=== PATIENT | female | born 1990 | race Two or more races ===

== ENCOUNTER 2025-05-29 15:47 | Emergency (ER) | payer BC, MEDICAID, OTHER ==
[~2025-05-29] VITALS: Ht 180.3 cm; Wt 133.1 kg
[2025-05-29 15:49] VITALS: BP 128/76; PULSE 94; RESP 16; TEMP 98.4; O2SAT 98
--- NOTE | 2025-05-29 16:10 | ED.PDOC ---
Musculoskeletal HPI Comments 34 year old female with no past medical history, RT and dominant presents to the emergency department with a chief complaint of Rt leg pain onset 2 days. Patient states she worked a 18 hour shift, is constantly standing, walking, going up stairs. After 18 hour shift, she began experiencing RT leg pain, pain worsens with exertion. Patient is also experiencing LT shoulder pain for the past 6 months, pain has worsen. No other symptoms or modifying factors present at this time. Denies previous surgeries to the leg Denies redness or swelling around the leg Denies fever chills night sweats nausea vomiting Denies fall, injury Denies numbness/tingling Chief Complaint: Upper Extremity Time Seen by MD: 16:05 Reviewed Notes: Nurses Notes, Medications, Allergies Allergies: Coded Allergies: NO KNOWN ALLERGIES (Unverified , 05/29/25) Home Meds Active Scripts Naproxen (Naproxen) 500 Mg Tab, 500 MG PO BIDPRN PRN for 14 Days, #28 TAB 0 Refills Prov:BLANCADAVIDE NP 05/29/25 Information Source: Patient Mode of Arrival: Ambulatory Location: Right Extremity Location: Leg Timing: Days Prehospital treatment: None Severity: Moderate Able to Move Extremity: Yes Bear Weight: Limited Pain: Moderate Hand Dominance: Right Mechanism: Spontaneous Circumstances: Work Related Onset of Symptoms: Spontaneous Symptoms: Pain DVT Risk Factors: NONE Associated signs and symptoms: Leg pain Past Medical History PAST MEDICAL HISTORY: Denies Surgical History: Denies all surgeries CELL LEAD History: No Pertinent CELL LEAD History Family History Family History: Reviewed,noncontributory to illness, No family hx of Cancer, No family hx of DM, No family hx of Heart sonia, No family hx of HTN, No family hx ofKidney sonia, No family hx of Liver sonia, No family hx of Lung sonia, No family hx of Stroke Social History Smoker: Non-Smoker Alcohol: Denies ETOH Use Drugs: Denies Drug Use Lives In: Home All Other Systems: Reviewed and Negative (as per HPI) Physical Exam General Appearance: No Apparent Distress, Normal HEENT: Normal ENT Inspection, Pharynx Normal, TMs Normal Neck: Full Range of Motion, Non-Tender, Normal, Normal Inspection Respiratory: Chest Non-Tender, Lungs Clear, No Accessory Muscle Use, No Respiratory Distress, Normal Breath Sounds Cardiovascular: No Edema, No JVD, No Murmur, No Gallop, Normal Peripheral Pulses, Regular Rate/Rhythm Breast Exam: Deferred Gastrointestinal: No Organomegaly, Non Tender, No Pulsatile Mass, Normal Bowel Sounds, Soft Genitalia: Deferred Pelvic: Deferred Rectal: Deferred Extremities: No calf tenderness, Normal capillary refill, Normal inspection, Normal range of motion, Non-tender, No pedal edema Musculoskeletal : Location: Bilateral Extremity Location: Leg (Homans sign negative) Apperance: Normal Neurologic: Alert, accounting professor II-XII nml as Tested, No Motor Deficits, Normal Affect, Normal Mood, No Sensory Deficits Cerebellar Function: Normal Reflexes: Normal Skin: Dry, Normal Color, Warm Lymphatic: No Adenopathy Was a procedure done? Was a procedure done?: No Differential Diagnosis EXT Differential Diagnosis: Sprain X-Ray, Labs, Meds, VS Vital Signs Date Time Temp Pulse Resp B/P (MAP) Pulse Ox O2 Delivery O2 Flow Rate FiO2 05/29/25 15:49 98.4 94 16 128/76 98 98.4 [place] [address] Ph: [phone] DIAGNOSTIC IMAGING Diagnostic Imaging Report : [id number] Signed PATIENT: MARIELY MALDONADO ACCT: [id number] UNIT: [id number] : 1990 LOC: ER ROOM / BED: / AGE / SEX: 34 / F ADM STATUS: REG ER SERVICE 1609 ORDERING PHYSICIAN: DAVIDE RIOS NP PROCEDURE(s): LSHD2 - L SHOULDER 2+ VIEW XRAY REASON: pain x 6 months ORDER NUMBER(s): [id number], ACCESSION NUMBER(s): [id number] EXAM: XY L SHOULDER 2+ VIEW XRAY INDICATION: Pain pain x 6 months TECHNIQUE: 3 views of the left shoulder COMPARISON: None FINDINGS/IMPRESSION: No radiographic evidence of an acute osseous abnormality. There is no acute fracture, osseous malalignment, or aggressive focal osseous lesion. There is no radiographically apparent joint space narrowing. ATED BY: LUIS DAS MD DICTATED DATE/TIME: 05/29/25 1641 SIGNED BY: LUIS DAS MD SIGNED DATE/TIME: 05/29/25 1641 CC: X-Ray, Labs, Meds, VS Comment 34 year old female with no past medical history presents to the emergency department with a chief complaint of Rt leg pain onset 2 days. Patient arrives alert and oriented, ABC's intact, afebrile, vital signs stable, saturating well in room air Diagnostic imaging ordered by me and results interpreted by radiology : XY L SHOULDER 2+ VIEW: IMPRESSION: No radiographic evidence of an acute osseous abnormality. There is no acute fracture, osseous malalignment, or aggressive focal osseous lesion. There is no radiographically apparent joint space narrowing. Wells score negative. No indication for DVT ultrasound at this time ED workup: Defer imaging and lab work for outpatient follow up at this time Disposition: Discharge. Strict return precautions discussed with the patient with full understanding. Supportive care advised (rest, ice, heat, NSAIDs, stretching exercises) Massage muscles with cold pack or ice for 20 minutes 4 times per day. Usually most useful if there is swelling during the first 48 hours Heating pad on the most painful area for 20 minutes to relieve muscle spasm Sleep and the most comfortable sleeping position (usually on the side with knees bent) Light stretching, no strenuous activity, avoid frequent bending, avoid carrying heavy objects Discussed possible benefits of yoga and acupuncture Additional MDM Review of External, Non-ED records: External records reviewed. Discussion with independent historian (EMS, family) history obtained from the patient/parents (if applicable) at bedside Chronic conditions affecting care: None Social determinants of health affecting care: None I considered escalation of care to admission for this patient, however given the reassuring workup, the patient is safe for outpatient management. On reevaluation, patient had symptomatic improvement. Patient is stable for discharge at this time. External notes reviewed. Test results and diagnostic imaging interpreted. All diagnostic findings, discharge care, education and instructions provided Follow-up with PCP in 2 to 3 days Patient verbalized understanding and agreed to treatment plan Vital signs stable, afebrile, no acute distress noted Patient ambulatory with strong steady gait Advised to return precautions for any new or worsening symptoms, return to ER immediately for re-evaluation Patient is aware that the purpose of this visit was for an acute medical emergency requiring emergent stabilization. Chronic conditions, including malignancies have not been ruled out. Patient is instructed to follow up with PCP as directed and discharge instructions for continued care and workup. If unable to arrange follow-up, patient is to return to the emergency department for reassessment. Patient (parent or legal guardian if applicable) was given verbal and written discharge instructions and acknowledges understanding. Time of 1ST Reevaluation: 16:35 Reevaluation 1ST: Improved Patient Education/Counseling: Diagnosis, Treatment Family Education/Counseling: No Family Present Departure 1 Departure Time of Disposition: 17:04 Impression: Primary Impression: Strain of calf muscle Qualified Codes: S86.819A - Strain of other muscle(s) and tendon(s) at lower leg level, unspecified leg, initial encounter Additional Impression: Left shoulder pain Qualified Codes: M25.512 - Pain in left shoulder Disposition: 01 HOME / SELF CARE / HOMELESS Condition: Stable e-Prescriptions Naproxen (Naproxen) 500 Mg Tab 500 MG PO BIDPRN PRN for 14 Days, #28 TAB 0 Refills Prov: DAVIDE RIOS NP 05/29/25 Critical Care Note Critical Care Time?: No Stability Stability form required: No Heart Score Heart Score: Heart Score Response (Comments) Value History N/A 0 EKG N/A 0 Age N/A 0 Risk Factors N/A 0 Troponin N/A 0 Total 0 I personally scribed for DAVIDE RIOS PHYSICAL SCIENCE AIDE ([email or web address]) on 05/29/25 at 16:10. Electronically submitted by Yakelin Bueno ([email or web address]). I personally scribed for DAVIDE RIOS NP ([email or web address]) on 05/29/25 at 16:53. Electronically submitted by Yakelin Bueno ([email or web address]). DAVIDE RIOS PHYSICAL SCIENCE AIDE May 29, 2025 16:10
--- NOTE | 2025-05-29 16:44 | DVH ---
EXAM: XY L SHOULDER 2+ VIEW XRAY INDICATION: Pain pain x 6 months TECHNIQUE: 3 views of the left shoulder COMPARISON: None FINDINGS/IMPRESSION: No radiographic evidence of an acute osseous abnormality. There is no acute fracture, osseous malalig nment, or aggressive focal osseous lesion. There is no radiographically apparent joint space narrowin g.
[2025-05-29] MEDS ORDERED: NAPR-746 PO (17:05)
== END 2025-05-29 17:20 | disposition home or self-care (01) ==
LOC: ER 15:47
DX: S86.819A Strain of other muscle(s) and tendon(s) at lower leg level, unspecified leg, initial encounter (principal); M25.512 Pain in left shoulder; X58.XXXA Exposure to other specified factors, initial encounter; Y93.89 Activity, other specified; Y92.89 Other specified places as the place of occurrence of the external cause; Y99.8 Other external cause status
CPT/HCPCS: 73030